=== PATIENT | female | born 1985 | race African-American/Black ===

== ENCOUNTER 2018-01-30 21:12 | Outpatient (CLI) | payer OTHER ==
[~2018-01-30] VITALS: Ht 165.1 cm; Wt 64.4 kg
[~2018-01-30 21:12] MED LIST: Chromagen, Feogen, M PO; KEFLEX500 MG PO; MAGIC MOUTHWASH1 ML MM; MOTRIN600 MG PO; Motrin PO
[2018-01-30 21:29] VITALS: BP 120/78
[2018-01-30] MEDS ORDERED: FEOSOL325 MG PO (22:01)
[2018-01-30] MEDS ORDERED: PRENATAL TABLE1 EAC3 PO (22:01)
[2018-01-30 23:52] LABS: AMPHETAMINE NEGATIVE (500 ng/mL); BARBITURATES NEGATIVE (200 ng/mL); BENZODIAZEPINES NEGATIVE (150 ng/mL); BUPRENORPHINE NEGATIVE (10 ng/mL); COCAINE NEGATIVE (150 ng/mL); METHADONE NEGATIVE (200 ng/mL); METHAMPHETAMINE NEGATIVE (500 ng/mL); OPIATES (MORPHINE) NEGATIVE (100 ng/mL); OXYCODONE NEGATIVE (100 ng/mL); PHENCYCLIDINE NEGATIVE (25 ng/mL); PROPOXYPHENE NEGATIVE (300 ng/mL); THC CANNABINOIDS NEGATIVE (50 ng/mL); TRICYCLIC ANTIDEPRESSANTS NEGATIVE (300 ng/mL)
[2018-01-31 00:52] VITALS: BP 118/69
== END 2018-01-31 01:50 | disposition home or self-care (01) ==
LOC: LDRP-OP → 2WEST 21:15 → LDRP-OP 04-10 13:12
PROVIDERS: Advanced Practice Midwife
DX: O47.1 False labor at or after 37 completed weeks of gestation (principal); Z3A.38 38 weeks gestation of pregnancy
CPT/HCPCS: 59025; G0378

== ENCOUNTER 2018-02-12 07:55 | Inpatient (IN) | payer OTHER ==
[2018-02-12] VITALS (16 sets, daily range): BP systolic 108–134; BP diastolic 59–82
[~2018-02-12] VITALS: Ht 160 cm; Wt 68.2 kg
[~2018-02-12 07:55] MED LIST changes: +FEOSOL325 MG PO; +PRENATAL TABLE1 EAC3 PO
[2018-02-12 09:48] LABS: BASOPHIL (%) 0.2 % (0-1); EOSINOPHIL (%) 1.4 % (0-5); EOSINOPHIL COUNT 0.1 K/uL (0-0.3); HEMATOCRIT 28.4 % (36.0-46.0); HEMOGLOBIN 9.3 G/DL (11.9-15.5); IMMATURE GRANULOCYTE (%) 0.4 % (0.0-0.7); LYMPHOCYTE (%) 32.3 % (15-42); LYMPHOCYTE COUNT 1.8 K/uL (1.0-2.8); MCHC 32.7 G/DL (30.0-36.0); MCV 82.6 FL (83-99); MONOCYTE (%) 6.2 % (3-12); MONOCYTE COUNT 0.4 K/uL (0-0.8); NEUTROPHIL (%) 59.5 % (45-76); NEUTROPHIL COUNT 3.4 K/uL (1.8-6.4); PLATELET COUNT 158 K/uL (156-360); RBC DIS.WIDTH-CV 13.5 % (11.8-14.6); RBC DIS.WIDTH-SD 40.6 % (39-53); RED BLOOD COUNT 3.44 M/uL (3.80-5.20); WHITE BLOOD COUNT 5.6 K/uL (4.1-10.2)
[2018-02-12 12:57] LABS: AMPHETAMINE NEGATIVE (500 ng/mL); BARBITURATES NEGATIVE (200 ng/mL); BENZODIAZEPINES NEGATIVE (150 ng/mL); BUPRENORPHINE NEGATIVE (10 ng/mL); COCAINE NEGATIVE (150 ng/mL); METHADONE NEGATIVE (200 ng/mL); METHAMPHETAMINE NEGATIVE (500 ng/mL); OPIATES (MORPHINE) NEGATIVE (100 ng/mL); OXYCODONE NEGATIVE (100 ng/mL); PHENCYCLIDINE NEGATIVE (25 ng/mL); PROPOXYPHENE NEGATIVE (300 ng/mL); THC CANNABINOIDS NEGATIVE (50 ng/mL); TRICYCLIC ANTIDEPRESSANTS NEGATIVE (300 ng/mL)
[2018-02-13 06:58] LABS: BASOPHIL (%) 0.3 % (0-1); EOSINOPHIL (%) 1.3 % (0-5); EOSINOPHIL COUNT 0.1 K/uL (0-0.3); HEMATOCRIT 24.4 % (36.0-46.0); HEMOGLOBIN 7.9 G/DL (11.9-15.5); IMMATURE GRANULOCYTE (%) 0.3 % (0.0-0.7); LYMPHOCYTE (%) 27.5 % (15-42); LYMPHOCYTE COUNT 2.2 K/uL (1.0-2.8); MCH 26.6 PG (29.0-34.0); MCHC 32.4 G/DL (30.0-36.0); MCV 82.2 FL (83-99); MONOCYTE (%) 5.4 % (3-12); MONOCYTE COUNT 0.4 K/uL (0-0.8); NEUTROPHIL (%) 65.2 % (45-76); NEUTROPHIL COUNT 5.2 K/uL (1.8-6.4); PLATELET COUNT 151 K/uL (156-360); RBC DIS.WIDTH-CV 13.5 % (11.8-14.6); RBC DIS.WIDTH-SD 40.3 % (39-53); RED BLOOD COUNT 2.97 M/uL (3.80-5.20)
[2018-02-13 07:39] VITALS: BP 115/76
[2018-02-13] MEDS ORDERED: IBUPROFEN800 MG PO (12:40)
[2018-02-13] MEDS ORDERED: FEOSOL325 MG PO (12:40)
[2018-02-13 14:44] VITALS: BP 123/72
== END 2018-02-13 19:30 | disposition home or self-care (01) | DRG 775 ==
LOC: LDRP-OP → 2WEST 07:56 → LDRP-OP 07:58 → 2WEST 15:06 → LDRP-OP 03-10 02:12
PROVIDERS: Advanced Practice Midwife; Obstetrics & Gynecology
PROC: 3E033VJ Introduction of Other Hormone into Peripheral Vein, Percutaneous Approach (ICD-10-PCS; principal; 2018-02-12)
PROC: 10907ZC Drainage of Amniotic Fluid, Therapeutic from Products of Conception, Via Natural or Artificial Opening (ICD-10-PCS; principal; 2018-02-12)
PROC: 10E0XZZ Delivery of Products of Conception, External Approach (ICD-10-PCS; principal; 2018-02-12)
DX: O99.02 Anemia complicating childbirth (principal); Z37.0 Single live birth; Z3A.40 40 weeks gestation of pregnancy
CPT/HCPCS: 85025; J0595; J1050; J7120; Q0169